=== PATIENT | female | born 1980 | race Two or more races ===

== ENCOUNTER → 2025-03-15 | Outpatient (CLI) | payer BC, SELFPAY ==
--- NOTE | 2025-03-15 14:00 | XR_ITS ---
Examination: Thyroid sonography complete TECHNIQUE: Grayscale sonographic images thyroid lobes Exam date and time: March 15, 2025 1426 hours Comparison November 16, 2022 INDICATIONS: Soft tissue mass in the right thyroid bed 2.4 cm left thyroid bed 3.3 cm, history thyroidectomy for thyroid cancer 12 years ago FINDINGS: Residual right thyroid versus soft tissue mass in the thyroid bed on the right, 5.7 x 2.4 x 3.4 cm IMPRESSION: Recommend repeat soft tissue neck post intravenous contrast to assess soft tissue in the right thyroid bed
--- NOTE | 2025-03-15 14:30 | XR_ITS ---
Examination: Retroperitoneal ultrasound, complete Technique: Multiple high resolution grayscale images of the retroperitoneum obtained, including kidneys and bladder. Exam date and time:March 15, 2025 1411 hours INDICATIONS: Bilateral flank pain beginning 3 weeks ago FINDINGS: Right kidney 11.3 cm cortex 1.1 cm Mild right hydronephrosis Left kidney 11.2 cm renal cortex 1.9 cm No hydronephrosis No bladder mass or bladder calculi Bladder prevoid volume 695 cc IMPRESSION: Mild right hydronephrosis
== END | disposition home or self-care (01) ==
LOC: CDIM 13:51
PROVIDERS: PCP Nurse Practitioner Family; Referring Provider Nurse Practitioner Family; Visit Provider Nurse Practitioner Family
DX: E07.9 Disorder of thyroid, unspecified (principal); N13.30 Unspecified hydronephrosis
CPT/HCPCS: 76536; 76770

== ENCOUNTER → 2025-06-19 | Outpatient (CLI) | payer BC, SELFPAY ==
--- NOTE | 2025-06-19 | XR_ITS ---
Examination: Lumbar spine, 5 views Technique: Lumbar spine AP, lateral, coned lateral lower lumbar spine, bilateral obliques 5 views Exam date and time: June 19, 2025 0736 hours Comparison April 29, 2022 INDICATIONS: Lower back pain beginning one month ago. FINDINGS: Adequate alignment lumbar vertebral bodies No lumbar fracture No significant lumbar disc narrowing Mild lumbar spondylosis IMPRESSION: No lumbar fracture No significant lumbar disc narrowing
== END | disposition home or self-care (01) ==
LOC: CDIM 07:01
PROVIDERS: PCP Nurse Practitioner Family; Referring Provider Nurse Practitioner Family; Visit Provider Nurse Practitioner Family
DX: M54.40 Lumbago with sciatica, unspecified side (principal)
CPT/HCPCS: 72110

== ENCOUNTER → 2025-11-12 | Outpatient (CLI) | payer BC, SELFPAY ==
--- NOTE | 2025-11-12 09:45 | XR_ITS ---
Examination: Screening digital mammography, bilateral Computer aided detection 3-D breast Tomosynthesis, bilateral Date and time of exam: November 12, 2025, 0926 hours, compared to mammogram July 03, 2024 Indication: Screening Technique: Nonmagnified MLO, CC views of the breasts to been obtained, reconstructed from 3-D Tomosynthesis images. R2 computer aided detection program utilized for evaluation of suspicious masses and/or abnormal calcifications. 3-D Tomosynthesis images obtained. Findings: Scattered areas of fibroglandular density. Benign calcifications. No interval suspicious masses. Intact implants Impression: BI-RADS category II: Benign Findings. Recommend 1 year follow-up mammogram.
== END | disposition home or self-care (01) ==
PROVIDERS: PCP Nurse Practitioner Family; Referring Provider Specialist; Visit Provider Specialist
DX: Z12.31 Encounter for screening mammogram for malignant neoplasm of breast (principal); R92.323 Mammographic fibroglandular density, bilateral breasts; R92.1 Mammographic calcification found on diagnostic imaging of breast
CPT/HCPCS: 77063; 77067